=== PATIENT | female | born 1945 | race Caucasian/White ===

== ENCOUNTER → 2018-10-14 | Outpatient (CLI) | payer MEDICARE, OTHER ==
[~2018-10-14] MED LIST: "\\\"BP MED\\\""; ASPIRIN EC81 M1 PO; BACTRIM DS TAB1 EACH PO; BAYER CHEWABLE81 MG PO; Beta Carotene PO; CARVEDILOL12.5 MG PO; CLEOCIN HCL300 MG PO; COD LIVER OIL1 EAC4 PO; CYMBALTA; CYMBALTA30 MG PO; DAILY MULTIPLE1 EACH PO; EVENING PRIMR1000 MG PO; FENOFIBRATE145 MG PO; FISH OIL; FISH OIL 1,2001 EAC4 PO; FLAX OIL1000 MG PO; GLUCOPHAGE500 MG PO; HUMALOG100 UNIT/1 SQ; HYDROCODON-ACE1 EAC7 PO; HYDROCODONE-AP1 EAC6 PO; HYZAAR 100-12.1 EACH PO; IBUPROFEN 600600 M1 PO; KEFLEX500 MG PO; LANTUS; LANTUS SOL100 UNIT/1 PO; LANTUS SOL100 UNIT/1 SUBQ; LANTUSSOLASTAR SUBQ; LEVOTHYROXIN0.137 M1 PO; LORAZEPAM; LORAZEPAM 1 MG T1 MG PO; LOSARTAN POTAS100 MG PO; MULTIVITAMIN; NORCO 5-325 TA1 EACH PO; PERCOCET PO; POTASSIUM; PREMPRO 0.3 MG1 EACH PO; SYNTHROID; VITAMIN D; VITAMIN D1000 UNI1 PO; VITAMIN D2000 UNI1 PO; [UNRECOGNIZED DRUG - OTHER]; [UNRECOGNIZED DRUG - OTHER]; [UNRECOGNIZED DRUG - REMARK]
== END ==
LOC: M.RAD 13:00
DX: M85.89 Other specified disorders of bone density and structure, multiple sites (principal); Z78.0 Asymptomatic menopausal state

== ENCOUNTER 2019-08-29 13:52 | Inpatient (IN) | payer MEDICARE, OTHER ==
[~2019-08-29] VITALS: Ht 147.3 cm; Wt 66.7 kg
[~2019-08-29 13:52] MED LIST changes: -LEVOTHYROXIN0.137 M1 PO; +SYNTHROID175 MCG PO; +VITAMIN D-40010 MCG PO; -VITAMIN D2000 UNI1 PO
[2019-08-29 13:57] VITALS: BP 159/91
[2019-08-29 14:26] LABS: ABSOLUTE BASOPHILS 0.1 thou/uL (0.0-0.2); ABSOLUTE EOSINOPHILS 0.2 thou/uL (0.0-0.7); ABSOLUTE LYMPHOCYTES 1.6 thou/uL (0.8-5.3); ABSOLUTE MONOCYTES 0.9 thou/uL (0.0-1.2); ABSOLUTE NEUTROPHILS 6.6 thou/uL (1.6-8.1); BASOPHILS 0.6 %; HEMATOCRIT 32.1 % (37.0-47.0); MCH 28.5 pg (26.0-34.0); MCHC 34.3 g/dL (28.0-37.0); MCV 83.2 fL (80.0-100.0); MPV 7.4 fl. (7.2-11.1); NUCLEATED RBCS 0 /100WBC; PLATELET COUNT* 239 thou/uL (150-400); POLYS 70.4 %; RBC 3.86 mil/uL (4.20-5.00); RDW-CV 15.2 % (10.5-14.5); WBC 9.3 thou/uL (4.0-11.0)
[2019-08-29 14:38] LABS: CALCIUM 8.8 mg/dL (8.5-10.1); CREATININE 1.9 mg/dL (0.6-1.3); POTASSIUM 4.8 mmol/L (3.5-5.1)
[2019-08-29 14:42] LABS: ALBUMIN 3.1 g/dL (3.4-5.0); TOTAL BILIRUBIN 0.5 mg/dL (<0.1-1.0); TOTAL PROTEIN 6.8 g/dL (6.4-8.2)
[2019-08-29 16:29] LABS: INFLUENZA A ANTIGEN Negative (Negative); INFLUENZA B ANTIGEN Negative (Negative)
--- NOTE | 2019-08-29 17:43 | EKG ---
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 : 1945 Requested By: Paige Vasquez Order Number: [id number] MD: Alex Dunn Measurements Intervals [place] Rate: 66 P: 37 NM: 196 QRS: -37 QRSD: 95 T: 128 QT: 408 QTc: 428 Interpretive Statements Sinus rhythm Left axis deviation Anterior infarct, old Abnormal T, consider ischemia, lateral leads Baseline wander in lead(s) II,III,aVF Compared to ECG 12/24/2013 07:57:16 Myocardial infarct finding now present T-wave abnormality now present Possible ischemia now present Left ventricular hypertrophy no longer present Early repolarization no longer present Electronically Signed On 08-29-2019 17:42:21 ANALYSIS DIRECTOR by Alex Dunn [email or web address] <ELECTRONICALLY SIGNED> By: Alex Dunn MD, [facility] 08/29/19 1742 1416 1416 Alex Dunn MD, [facility] /EPI
[2019-08-29 18:07] VITALS: BP 131/75
--- NOTE | 2019-08-29 19:00 | NUR ---
PT ARRIVED FROM ER AROUND 1819. HEART MONITOR PUT ON, ORIENTED TO ROOM, CALL LIGHT WITHIN REACH. NO C/O PAIN OR DISCOMFORT. ABLE TO MAKE NEEDS KNOWN. FAMILY AT BEDSIDE AT THIS TIME. WILL CONTINUE TO MONITOR.
[2019-08-29 20:00] VITALS: BP 184/74
[2019-08-29] MEDS ORDERED: COZAAR 25 MG TA25 M1 PO (20:35)
[2019-08-29] MEDS ORDERED: CHLORTHALIDONE25 MG PO (20:36)
[2019-08-29] MEDS ORDERED: NORVASC 2.5 MG2.5 M1 PO (20:36)
[2019-08-29] MEDS ORDERED: CLONIDINE HCL0.1 MG PO (20:37)
[2019-08-29] MEDS ORDERED: OCUVITE TABLET1 EAC1 PO (20:38)
[2019-08-29] MEDS ORDERED: VASCEPA1 GM PO (20:39)
[2019-08-30 00:26] VITALS: BP 113/52
[2019-08-30 04:02] VITALS: BP 166/50
--- NOTE | 2019-08-30 04:22 | NUR ---
ASSUMED PT CARE AT 1900. NURSING ASSESSMENT COMPLETED. PT VOICED NO CONCERNS THI SHIFT. MEDICAL ASST IN PLACE. HOURLY ROUNDING COMPLETED. NEGIVE SEPSIS.CALL LIGHT WITHIN REACH.
[2019-08-30 05:11] LABS: ABSOLUTE LYMPHOCYTES 0.8 thou/uL (0.8-5.3); ABSOLUTE MONOCYTES 0.2 thou/uL (0.0-1.2); ABSOLUTE NEUTROPHILS 7.7 thou/uL (1.6-8.1); BASOPHILS 0.1 %; HEMATOCRIT 33.1 % (37.0-47.0); HEMOGLOBIN 11.3 gm/dL (12.0-15.0); LYMPHOCYTES 8.9 %; MCH 28.2 pg (26.0-34.0); MCV 82.9 fL (80.0-100.0); MONOCYTES 2.2 %; MPV 7.8 fl. (7.2-11.1); NUCLEATED RBCS 0 /100WBC; PLATELET COUNT* 259 thou/uL (150-400); POLYS 88.8 %; RBC 3.99 mil/uL (4.20-5.00); RDW-CV 15.4 % (10.5-14.5); WBC 8.6 thou/uL (4.0-11.0)
[2019-08-30 05:35] LABS: ANION GAP 12 mmol/L (7-16); BUN 51 mg/dL (7-18); CALCIUM 8.9 mg/dL (8.5-10.1); CHLORIDE 101 mmol/L (98-107); CO2 25 mmol/L (21-32); GLUCOSE 258 mg/dL (70-99); NT-PRO BRAIN NAT PEPTIDE 7941 pg/mL (<300); POTASSIUM 4.7 mmol/L (3.5-5.1); SODIUM 138 mmol/L (136-145); TROPONIN-I LEVEL <0.06 ng/mL (<0.06)
[2019-08-30 08:00] VITALS: BP 169/50
[2019-08-30 12:00] VITALS: BP 177/51
[2019-08-30 16:00] VITALS: BP 185/56
[2019-08-30 20:00] VITALS: BP 165/44
--- NOTE | 2019-08-30 20:21 | NUR ---
ASSUMED PT CARE AT 0730. ASSESSMENT COMPLETED CHARTED. ABLE TO MAKE NEEDS KNOWN. UP AD GIO. NO C/O PAIN OR DISCOMFORT. 2L O2 NEEDED. CALL LIGHT WITHIN REACH. WILL CONTINUE TO MONITOR.
[2019-08-31] VITALS (7 sets, daily range): BP systolic 126–174; BP diastolic 40–65
[2019-08-31 02:09] LABS: GLYCOHEMOGLOBIN (HGB A1C) 8.3 % (4.8-5.6)
--- NOTE | 2019-08-31 02:33 | NUR ---
PT ALERT ORIENTED. UP AD GIO TO BR. TELEMETRY SHOWS SR. ARAMBULA
[2019-08-31 04:43] LABS: ABSOLUTE LYMPHOCYTES 1.9 thou/uL (0.8-5.3); ABSOLUTE MONOCYTES 1.3 thou/uL (0.0-1.2); ABSOLUTE NEUTROPHILS 10.6 thou/uL (1.6-8.1); BASOPHILS 0.2 %; EOSINOPHILS 0.2 %; HEMATOCRIT 30.4 % (37.0-47.0); HEMOGLOBIN 10.2 gm/dL (12.0-15.0); LYMPHOCYTES 13.4 %; MCH 28.1 pg (26.0-34.0); MCHC 33.6 g/dL (28.0-37.0); MCV 83.6 fL (80.0-100.0); MONOCYTES 9.1 %; NUCLEATED RBCS 0 /100WBC; PLATELET COUNT* 263 thou/uL (150-400); POLYS 77.1 %; RBC 3.64 mil/uL (4.20-5.00); RDW-CV 15.2 % (10.5-14.5); WBC 13.8 thou/uL (4.0-11.0)
[2019-08-31 05:23] LABS: CALCIUM 8.8 mg/dL (8.5-10.1); CREATININE 2.5 mg/dL (0.6-1.3); POTASSIUM 4.7 mmol/L (3.5-5.1)
--- NOTE | 2019-08-31 19:00 | NUR ---
ASSUMED PT CARE AT 0730. ASSESSMENT COMPLETED CHARTED. ABLE TO MAKE NEEDS KNOWN. UP AD GIO. NO C/O PAIN OR DISCOMFORT. CALL LIGHT WITHIN REACH. C/O DIARRHEA AROUND LUNCH, NOTIFIED DR, NEW ORDERS GIVEN AND GAVE PRN PER SEP WHICH WAS EFFECTIVE. RESTING IN BED MOST OF THE DAY. WILL CONTINUE TO MONITOR.
--- NOTE | 2019-08-31 22:07 | NUR ---
PT ALERT ORIENTED. UP AD GIO TO BR. TELEMETRY SHOWS SR. DENIES PAIN. WCTM
[2019-09-01 04:00] VITALS: BP 211/60
[2019-09-01 05:15] VITALS: BP 136/42
[2019-09-01 05:46] LABS: ABSOLUTE BASOPHILS 0.1 thou/uL (0.0-0.2); ABSOLUTE EOSINOPHILS 0.5 thou/uL (0.0-0.7); ABSOLUTE LYMPHOCYTES 2.9 thou/uL (0.8-5.3); ABSOLUTE MONOCYTES 1.3 thou/uL (0.0-1.2); ABSOLUTE NEUTROPHILS 7.8 thou/uL (1.6-8.1); BASOPHILS 0.6 %; EOSINOPHILS 3.9 %; HEMATOCRIT 36.8 % (37.0-47.0); LYMPHOCYTES 22.8 %; MCH 27.9 pg (26.0-34.0); MCHC 33.7 g/dL (28.0-37.0); MCV 82.8 fL (80.0-100.0); MONOCYTES 10.6 %; MPV 8.1 fl. (7.2-11.1); NUCLEATED RBCS 0 /100WBC; PLATELET COUNT* 331 thou/uL (150-400); POLYS 62.1 %; RBC 4.44 mil/uL (4.20-5.00); RDW-CV 15.7 % (10.5-14.5); WBC 12.5 thou/uL (4.0-11.0)
[2019-09-01 05:47] LABS: CREATININE 1.8 mg/dL (0.6-1.3); POTASSIUM 3.6 mmol/L (3.5-5.1)
[2019-09-01 05:58] LABS: HEMOGLOBIN 12.4 gm/dL (12.0-15.0)
[2019-09-01 08:00] VITALS: BP 198/53
[2019-09-01 12:10] VITALS: BP 154/61
--- NOTE | 2019-09-01 13:52 | 2DMMODE ---
[place] [address] 2 D/M-MODE ECHOCARDIOGRAM Name: RORY ESQUEDA Room: [address] IN .R.#: [id number] Admission: 08/29/19 Attend Phys: Tre Cano, Discharge: Date of : 43 Date of Service: 09/01/19 1351 Report #: [id number] THIS REPORT FOR: cc: Brittany Coello Kathleen M. DO Blick, David R. MD [facility] ~ APPROVED REPORT Study performed: 09/01/2019 11:20:51 EXAM: Comprehensive 2D, Doppler, and color-flow Echocardiogram Patient Location: In-Patient Room #: 203 Status: routine BSA: 1.60 HR: 66 bpm BP: 136/42 mmHg Rhythm: NSR Other Information Study Quality: Good Indications Congestive Heart Failure Dyspnea 2D Dimensions IVSd: 10.15 (7-11mm) LVOT Diam: 17.52 (18-24mm) LVDd: 42.17 mm PWd: 8.71 (7-11mm) Ascending Ao: 25.81 (22-36mm) LVDs: 29.75 (25-40mm) Aortic Root: 26.29 mm Volumes Left Atrial Volume (Systole) LA ESV Index: 26.50 mL/m2 Aortic Valve AoV Peak Rl.: 1.16 m/s AO Peak Gr.: 5.39 mmHg LVOT Max P.12 mmHg AO Mean Gr.: 2.80 mmHg LVOT Mean P.19 mmHg LVOT Max V: 0.73 m/s AO V2 VTI: 30.72 cm LVOT Mean V: 0.51 m/s SHIRLEY (VTI): 1.49 cm2 LVOT V1 VTI: 18.98 [place] [address] 2 D/M-MODE ECHOCARDIOGRAM Name: RORY ESQUEDA Room: [address] IN .R.#: [id number] Admission: 08/29/19 Attend Phys: Tre Cano, Discharge: Date of : 43 Date of Service: 09/01/19 1351 Report #: [id number] Mitral Valve E/A Ratio: 1.09 MV Decel. Time: 165.09 ms MV E Max Rl.: 0.86 m/s MV PHT: 47.88 ms MVA (PHT): 4.60 cm2 TDI E/Lateral E': 12.29 E/Medial E': 12.29 Medial E' Rl.: 0.07 m/s Lateral E' Rl.: 0.07 m/s Pulmonary Valve PV Peak Rl.: 0.87 m/s PV Peak Gr.: 3.05 mmHg Tricuspid Valve RAP Estimate: 5.00 mmHg TR Peak Gr.: 46.51 mmHg RVSP: 51.00 mmHg PA Pressure: 51.00 mmHg Left Ventricle The left ventricle is normal size. There is normal LV segmental wall motion. There is normal left ventricular wall thickness. Left ventricular systolic function is normal. The left ventricular ejection fraction is within the normal range. LVEF is 55-60%. The left ventricular diastolic function is normal. Right Ventricle The right ventricle is normal size. The right ventricular systolic function is normal. Atria The left atrium size is normal. The right atrium size is normal. Aortic Valve The aortic valve is normal in structure. No aortic regurgitation is present. There is no aortic valvular stenosis. Mitral Valve The mitral valve is normal in structure. Mild mitral regurgitation. No evidence of mitral valve stenosis. Tricuspid Valve The tricuspid valve is normal in [place] [address] 2 D/M-MODE ECHOCARDIOGRAM Name: RORY ESQUEDA RONY Room: [address] IN .#: [id number] Admission: 08/29/19 Attend Phys: Tre Cano, Discharge: Date of : 43 Date of Service: 09/01/19 1351 Report #: [id number] regurgitation. estimated pa pressure 50 mm hg Pulmonic Valve The pulmonary valve is normal in structure. Mild pulmonic regurgitation. Great Vessels The aortic root is normal in size. IVC is normal in size and collapses >50% with inspiration. Pericardium There is no pericardial effusion. <Conclusion> LVEF is 55-60%. Mild mitral regurgitation. Mild tricuspid regurgitation. estimated pa pressure 50 mm hg <ELECTRONICALLY SIGNED> By: Pascual Fortune MD, FACC 09/01/19 1351 1351 1351 Pascual Fortune MD, FACC /INF
--- NOTE | 2019-09-01 15:54 | NUR ---
I have reviewed the documentation by BHAKTI ORO from 09/01/19 to 09/01/19 and I concur with it. FILEMON MAURICE
--- NOTE | 2019-09-01 16:00 | NUR ---
ASSUMED PT CARE AT 0730. ASSESSMENT COMPLETED CHARTED. ABLE TO MAKE NEEDS KNOWN. UP AD GIO IN ROOM. NO C/O PAIN OR DISCOMFORT. DISCHARGE APPROVED AFTER ECHO CAME BACK GOOD. DISCHARGE PACKET GIVEN TO PT. IV AND HEART MONITOR REMOVED. PT CALLED RIDE TO GET HER. TAKEN DOWN WITH ALL BELONGINGS IN WHEELCHAIR AT AROUND 1550. NO COMMENTS, QUESTIONS, OR CONCERNS NOTED.
== END 2019-09-01 15:50 | disposition home or self-care (01) | DRG 291 ==
LOC: M.ERS 13:52 → M.TBA-ER 15:40 → M.2W 15:40
PROVIDERS: Family Medicine; Physician Assistant; ADMIT Internal Medicine
DX: I13.0 Hypertensive heart and chronic kidney disease with heart failure and stage 1 through stage 4 chronic kidney disease, or unspecified chronic kidney disease (principal); I50.43 Acute on chronic combined systolic (congestive) and diastolic (congestive) heart failure; J96.01 Acute respiratory failure with hypoxia; N18.4 Chronic kidney disease, stage 4 (severe); N17.9 Acute kidney failure, unspecified; E78.5 Hyperlipidemia, unspecified; E03.9 Hypothyroidism, unspecified; F32.9 Major depressive disorder, single episode, unspecified; E11.22 Type 2 diabetes mellitus with diabetic chronic kidney disease; I25.10 Atherosclerotic heart disease of native coronary artery without angina pectoris; M19.90 Unspecified osteoarthritis, unspecified site; E11.65 Type 2 diabetes mellitus with hyperglycemia; I16.0 Hypertensive urgency; Z90.49 Acquired absence of other specified parts of digestive tract; Z79.82 Long term (current) use of aspirin; Z79.84 Long term (current) use of oral hypoglycemic drugs; Z79.899 Other long term (current) drug therapy; Z88.0 Allergy status to penicillin; Z87.891 Personal history of nicotine dependence; Z95.1 Presence of aortocoronary bypass graft

== ENCOUNTER 2019-12-16 11:37 | Emergency (ER) | payer MEDICARE, OTHER ==
[~2019-12-16] VITALS: Ht 147.3 cm; Wt 59.4 kg
[~2019-12-16 11:37] MED LIST changes: +CHLORTHALIDONE25 MG PO; +CLONIDINE HCL0.1 MG PO; +COZAAR 25 MG TA25 M1 PO; +NORVASC 2.5 MG2.5 M1 PO; +OCUVITE TABLET1 EAC1 PO; +VASCEPA1 GM PO
[2019-12-16 12:00] LABS: ABSOLUTE BASOPHILS 0.1 thou/uL (0.0-0.2); ABSOLUTE EOSINOPHILS 0.3 thou/uL (0.0-0.7); ABSOLUTE LYMPHOCYTES 1.9 thou/uL (0.8-5.3); ABSOLUTE MONOCYTES 0.8 thou/uL (0.0-1.2); ABSOLUTE NEUTROPHILS 6.8 thou/uL (1.6-8.1); BASOPHILS 0.9 %; EOSINOPHILS 2.8 %; HEMATOCRIT 37.6 % (37.0-47.0); HEMOGLOBIN 13.1 gm/dL (12.0-15.0); LYMPHOCYTES 19.4 %; MCH 28.5 pg (26.0-34.0); MCHC 34.9 g/dL (28.0-37.0); MCV 81.7 fL (80.0-100.0); MONOCYTES 7.9 %; MPV 7.7 fl. (7.2-11.1); NUCLEATED RBCS 0 /100WBC; PLATELET COUNT* 265 thou/uL (150-400); RDW-CV 15.5 % (10.5-14.5); WBC 9.9 thou/uL (4.0-11.0)
[2019-12-16 12:06] LABS: APTT 27.1 Seconds (25.0-31.3); CALCIUM 8.7 mg/dL (8.5-10.1); CREATININE 1.5 mg/dL (0.6-1.3); POTASSIUM 4.4 mmol/L (3.5-5.1); PROTIME 10.1 Seconds (9.20-11.50)
[2019-12-16 12:20] LABS: ALBUMIN 3.2 g/dL (3.4-5.0); CK-MB MASS 2.1 ng/mL (<0.5-3.6); MAGNESIUM 1.8 mg/dL (1.8-2.4); TOTAL BILIRUBIN 0.3 mg/dL (<0.1-1.0); TOTAL PROTEIN 7.3 g/dL (6.4-8.2)
--- NOTE | 2019-12-16 15:31 | EKG ---
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 : 1945 Requested By: Andrea Coe Order Number: [id number] MD: Alex Dunn Measurements Intervals [place] Rate: 72 P: 25 CT: 176 QRS: -45 QRSD: 92 T: 137 QT: 392 QTc: 430 Interpretive Statements Sinus rhythm LVH with secondary repolarization abnormality Inferior infarct, old Anteroseptal infarct, possible compared to ECG 08/29/2019 14:16:20 Left ventricular hypertrophy now present Early repolarization now present Q waves now present Left-axis deviation no longer present T-wave abnormality no longer present Possible ischemia no longer present Myocardial infarct finding still present Electronically Signed On 12-16-2019 15:30:07 CDT by Alex Dunn [email or web address] <ELECTRONICALLY SIGNED> By: Alex Dunn MD, [facility] 12/16/19 1530 1145 1145 Alex Dunn MD, [facility] /EPI
[2019-12-16 15:33] VITALS: BP 177/50
== END 2019-12-16 15:34 | disposition home or self-care (01) ==
LOC: M.ERS 11:37
PROVIDERS: Family Medicine
DX: I11.0 Hypertensive heart disease with heart failure (principal); I50.9 Heart failure, unspecified; E11.9 Type 2 diabetes mellitus without complications; Z88.0 Allergy status to penicillin; Z79.4 Long term (current) use of insulin; Z79.82 Long term (current) use of aspirin; Z79.84 Long term (current) use of oral hypoglycemic drugs; Z79.899 Other long term (current) drug therapy

== ENCOUNTER → 2019-12-24 | Outpatient (CLI) | payer MEDICARE, OTHER ==
[~2019-12-24] MED LIST changes: +LASIX 40 MG TAB40 MG PO; +LEVOTHYROXINE137 MCG PO; +LIPITOR40 MG PO
--- NOTE | 2019-12-24 13:22 | 2DMMODE ---
[place] [address] 2 D/M-MODE ECHOCARDIOGRAM Name: RORY ESQUEDA Room: [facility]#: [id number] Admission: 12/24/19 Attend Phys: Brittany Ellis Discharge: Date of : 43 Date of Service: 12/24/19 1321 Report #: [id number] THIS REPORT FOR: cc: Brittany Coello Kathleen M. DO Blick, David R. MD [facility] ~ APPROVED REPORT Study performed: 12/24/2019 10:30:06 EXAM: Comprehensive 2D, Doppler, and color-flow Echocardiogram Patient Location: Out-Patient BSA: 1.52 HR: 55 bpm BP: 197/78 mmHg Other Information Study Quality: Fair Indications CAD Hypertension/HDD 2D Dimensions IVSd: 12.85 (7-11mm) LVOT Diam: 20.12 (18-24mm) LVDd: 43.64 mm PWd: 10.31 (7-11mm) Ascending Ao: 25.47 (22-36mm) LVDs: 26.68 (25-40mm) Aortic Root: 22.50 mm Volumes Left Atrial Volume (Systole) LA ESV Index: 14.80 mL/m2 Aortic Valve AoV Peak Rl.: 1.06 m/s AO Peak Gr.: 4.52 mmHg LVOT Max P.07 mmHg AO Mean Gr.: 2.59 mmHg LVOT Mean P.06 mmHg LVOT Max V: 0.72 m/s AO V2 VTI: 26.80 cm LVOT Mean V: 0.48 m/s SHIRLEY (VTI): 1.97 cm2 LVOT V1 VTI: 16.64 [place] [address] 2 D/M-MODE ECHOCARDIOGRAM Name: RORY ESQUEDA Room: [facility]#: [id number] Admission: 12/24/19 Attend Phys: Brittany Ellis Discharge: Date of : 43 Date of Service: 12/24/19 1321 Report #: [id number] E/A Ratio: 0.69 MV Decel. Time: 155.40 ms MV E Max Rl.: 0.50 m/s MV PHT: 45.06 ms MVA (PHT): 4.88 cm2 TDI E/Lateral E': 8.33 E/Medial E': 10.00 Medial E' Rl.: 0.05 m/s Lateral E' Rl.: 0.06 m/s Pulmonary Valve PV Peak Rl.: 0.80 m/s PV Peak Gr.: 2.58 mmHg Tricuspid Valve RAP Estimate: 5.00 mmHg TR Peak Gr.: 18.61 mmHg RVSP: 23.61 mmHg PA Pressure: 23.61 mmHg Left Ventricle The left ventricle is normal size. hypokinesis noted of the distal septum There is normal left ventricular wall thickness. Left ventricular systolic function is borderline. LVEF is 45-50%. Grade I - abnormal relaxation pattern. Right Ventricle The right ventricle is normal size. The right ventricular systolic function is normal. Atria The left atrium size is normal. The right atrium size is normal. Aortic Valve The aortic valve is normal in structure. No aortic regurgitation is present. There is no aortic valvular stenosis. Mitral Valve The mitral valve is normal in structure. There is no mitral valve regurgitation noted. No evidence of mitral valve stenosis. Tricuspid Valve The tricuspid valve is normal in structure. Mild tricuspid [place] [address] 2 D/M-MODE ECHOCARDIOGRAM Name: YINHOLLEYRORY A Room: [facility]#: [id number] Admission: 12/24/19 Attend Phys: Brittany Ellis Discharge: Date of : 43 Date of Service: 12/24/19 1321 Report #: [id number] The pulmonary valve is normal in structure. Mild pulmonic regurgitation. Great Vessels The aortic root is normal in size. IVC is normal in size and collapses >50% with inspiration. Pericardium There is no pericardial effusion. <Conclusion> LVEF is 45-50%. hypokinesis noted of the distal septum <ELECTRONICALLY SIGNED> By: Pascual Fortune MD, [facility] 12/24/19 132 20 20 Pascual Fortune MD, FACC /INF
== END ==
LOC: M.CRD 10:37
PROVIDERS: ATTEND Family Medicine
DX: I08.8 Other rheumatic multiple valve diseases (principal); I25.10 Atherosclerotic heart disease of native coronary artery without angina pectoris; R60.9 Edema, unspecified; I50.9 Heart failure, unspecified

== ENCOUNTER 2020-01-07 01:44 | Inpatient (IN) | payer MEDICARE, OTHER ==
[2020-01-07] VITALS (7 sets, daily range): BP systolic 108–200; BP diastolic 41–56
[~2020-01-07] VITALS: Ht 147.3 cm; Wt 60.3 kg
[~2020-01-07 01:44] MED LIST changes: -LASIX 40 MG TAB40 MG PO; -LEVOTHYROXINE137 MCG PO; -LIPITOR40 MG PO
[2020-01-07 02:49] LABS: ABSOLUTE EOSINOPHILS 0.3 thou/uL (0.0-0.7); ABSOLUTE LYMPHOCYTES 1.5 thou/uL (0.8-5.3); ABSOLUTE MONOCYTES 1.1 thou/uL (0.0-1.2); ABSOLUTE NEUTROPHILS 7.9 thou/uL (1.6-8.1); BASOPHILS 0.3 %; EOSINOPHILS 2.4 %; HEMATOCRIT 28.8 % (37.0-47.0); HEMOGLOBIN 9.5 gm/dL (12.0-15.0); LYMPHOCYTES 13.7 %; MCH 27.7 pg (26.0-34.0); MCHC 32.9 g/dL (28.0-37.0); MONOCYTES 10.2 %; MPV 7.9 fl. (7.2-11.1); NUCLEATED RBCS 0 /100WBC; PLATELET COUNT* 241 thou/uL (150-400); POLYS 73.4 %; RBC 3.43 mil/uL (4.20-5.00); RDW-CV 15.5 % (10.5-14.5); WBC 10.7 thou/uL (4.0-11.0)
[2020-01-07 02:51] LABS: BE -6.7 mmol/L (-2 to +3); PCO2 35.8 mmHg (35.0-45.0); PO2 114.3 mmHg (75.0-100.0); pH 7.331 (7.340-7.450)
[2020-01-07 02:54] LABS: CALCIUM 8.3 mg/dL (8.5-10.1); CREATININE 2.6 mg/dL (0.6-1.3); POTASSIUM 5.6 mmol/L (3.5-5.1)
[2020-01-07 02:56] LABS: INR 1.2; PROTIME 12.6 Seconds (9.20-11.50)
[2020-01-07 02:59] LABS: ALBUMIN 2.8 g/dL (3.4-5.0); MAGNESIUM 2.5 mg/dL (1.8-2.4); TOTAL BILIRUBIN 0.3 mg/dL (<0.1-1.0); TOTAL PROTEIN 6.3 g/dL (6.4-8.2)
[2020-01-07 06:09] LABS: BE -5.6 mmol/L (-2 to +3); PCO2 39.1 mmHg (35.0-45.0); PO2 90.4 mmHg (75.0-100.0); pH 7.326 (7.340-7.450)
--- NOTE | 2020-01-07 11:39 | EKG ---
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[place] : 1945 Requested By: Rosa Yip Order Number: [id number] MD: Pascual Fortune Measurements Intervals [place] Rate: 59 P: 44 [place]: 187 QRS: -40 QRSD: 99 T: 96 QT: 424 QTc: 420 Interpretive Statements Sinus rhythm LVH with secondary repolarization abnormality Inferior infarct, old Anterior infarct, old Compared to ECG 12/16/2019 11:45:26 No significant changes Electronically Signed On 01-07-2020 11:39:21 CDT by Pascual Fortune [email or web address] <ELECTRONICALLY SIGNED> By: Pascual Fortune MD, [facility] 01/07/20 1139 0149 0149 Pascual Fortune MD, [facility] /EPI
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
[2020-01-08] VITALS (7 sets, daily range): BP systolic 140–225; BP diastolic 46–62
[2020-01-08 02:06] LABS: GLYCOHEMOGLOBIN (HGB A1C) 8.7 % (4.8-5.6)
[2020-01-08 02:10] LABS: URINE BILIRUBIN NEGATIVE (Negative); URINE BLOOD TRACE (Negative); URINE CLARITY CLEAR; URINE COLOR YELLOW; URINE GLUCOSE-RANDOM NEGATIVE (Negative); URINE KETONES NEGATIVE (Negative); URINE LEUKOCYTES-REFLEX NEGATIVE (Negative); URINE NITRITE-REFLEX NEGATIVE (Negative); URINE PROTEIN TRACE (Negative); URINE UROBILINOGEN 0.2 E.U./dl (0.2-1.0)
[2020-01-08 04:54] LABS: CALCIUM 9.3 mg/dL (8.5-10.1); CREATININE 2.3 mg/dL (0.6-1.3); POTASSIUM 4.6 mmol/L (3.5-5.1)
[2020-01-09] VITALS: BP 142/46
[2020-01-09 04:27] LABS: CALCIUM 8.9 mg/dL (8.5-10.1); CREATININE 2.4 mg/dL (0.6-1.3); POTASSIUM 4.3 mmol/L (3.5-5.1)
[2020-01-09 04:37] VITALS: BP 143/51
[2020-01-09 08:00] VITALS: BP 190/67
[2020-01-09] MEDS ORDERED: LEVOTHYROXINE137 MCG PO (11:37)
[2020-01-09 12:00] VITALS: BP 165/51
[2020-01-09] MEDS ORDERED: LASIX 40 MG TAB40 MG PO (12:27)
[2020-01-09] MEDS ORDERED: LIPITOR40 MG PO (16:31)
== END 2020-01-09 18:25 | disposition home health service (06) | DRG 291 ==
LOC: M.ERS 01:44 → M.TBA-ER 04:33 → M.2W 04:33
PROVIDERS: Internal Medicine Cardiovascular Disease; Personal Emergency Response Attendant; ADMIT Internal Medicine; ATTEND Internal Medicine
PROC: 5A09357 Assistance with Respiratory Ventilation, Less than 24 Consecutive Hours, Continuous Positive Airway Pressure (ICD-10-PCS; principal; 2020-01-07)
DX: I13.0 Hypertensive heart and chronic kidney disease with heart failure and stage 1 through stage 4 chronic kidney disease, or unspecified chronic kidney disease (principal); J96.01 Acute respiratory failure with hypoxia; I50.41 Acute combined systolic (congestive) and diastolic (congestive) heart failure; G93.41 Metabolic encephalopathy; N18.4 Chronic kidney disease, stage 4 (severe); N17.9 Acute kidney failure, unspecified; E87.1 Hypo-osmolality and hyponatremia; E44.0 Moderate protein-calorie malnutrition; E78.5 Hyperlipidemia, unspecified; E03.9 Hypothyroidism, unspecified; F32.9 Major depressive disorder, single episode, unspecified; E87.5 Hyperkalemia; E11.65 Type 2 diabetes mellitus with hyperglycemia; E11.22 Type 2 diabetes mellitus with diabetic chronic kidney disease; D64.9 Anemia, unspecified; I25.10 Atherosclerotic heart disease of native coronary artery without angina pectoris; Z20.828 Contact with and (suspected) exposure to other viral communicable diseases; Z87.81 Personal history of (healed) traumatic fracture; T50.2X5A Adverse effect of carbonic-anhydrase inhibitors, benzothiadiazides and other diuretics, initial encounter; Z89.112 Acquired absence of left hand; Z88.0 Allergy status to penicillin; Z87.891 Personal history of nicotine dependence; Z95.1 Presence of aortocoronary bypass graft; Z68.27 Body mass index [BMI] 27.0-27.9, adult; Y92.89 Other specified places as the place of occurrence of the external cause